=== PATIENT | male | born 1985 | race Asian ===

== ENCOUNTER 2017-03-21 08:46 | Emergency (ER) | payer OTHER ==
[~2017-03-21] VITALS: Ht 182.9 cm; Wt 78.0 kg
--- NOTE | 2017-03-21 10:31 | ED INFLUENZA/URI COMPLAINT ---
History of Present Illness General Chief Complaint: General Adult Stated Complaint: FLU SYMPTOMS Vital Signs & Intake/Output Vital Signs & Intake/Output Vital Signs Date Time Temp Pulse Resp B/P B/P Pulse O2 O2 Flow FiO2 Mean Ox Delivery Rate 03/21 847 97.2 55 15 143/75 97 Room Air Room Air Allergies Coded Allergies: No Known Allergies (03/21/17) Triage Note: PT TO ED FOR C/C OF YELLOW PRODUCTIVE COUGH, SORE THROAT. 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 No Progress Differential Diagnosis: influenza, otitis, pneumonia, pharyngitis, sinusitis, BRONCHITIS Plan of Care: Orders Procedure Date/time Status THROAT CULTURE W/QUICK STREP 03/21 852 Active RAPID VIRAL INFLUENZA A 03/21 849 Complete Microbiology 03/21 854 NASOPHARYN: Influenza Virus A & B Rapid Smear - COMP I discussed with the patient at length all of their results. I had an extensive conversation regarding need for close follow up with their primary care physician this week as well as return precautions. I answered all of their questions, they feel comfortable with the plan and follow-up care. I discussed with the patient/family the medications that they will receive. I gave them signs and symptoms that could indicate an adverse reaction. I have advised them to limit their activities until they can see how they respond to the medication. Initial ED EKG: none Departure Departure Condition: Stable Referrals: Patient Has No Primary Care Dr (PCP/Family) Departure Forms: Customer Survey General Discharge Information obvious focal neurologic abnormalities. Skin: Warm & dry;No appreciable rash on exposed skin Psych: Mood affect normal, normal memory normal judgment. Progress Differential Diagnosis: influenza, otitis, pneumonia, pharyngitis, sinusitis, BRONCHITIS Plan of Care: Orders Procedure Date/time Status THROAT CULTURE W/QUICK STREP 03/21 852 Active RAPID VIRAL INFLUENZA A 03/21 849 Complete Microbiology 03/21 854 NASOPHARYN: Influenza Virus A & B Rapid Smear - COMP I discussed with the patient at length all of their results. I had an extensive conversation regarding need for close follow up with their primary care physician this week as well as return precautions. I answered all of their questions, they feel comfortable with the plan and follow-up care. I discussed with the patient/family the medications that they will receive. I gave them signs and symptoms that could indicate an adverse reaction. I have advised them to limit their activities until they can see how they respond to the medication. Initial ED EKG: none Departure Departure Condition: Stable Referrals: Patient Has No Primary Care Dr (PCP/Family) Departure Forms: Customer Survey General Discharge Information
== END 2017-03-21 09:15 | disposition admitted as inpatient to this hospital (09) ==
LOC: ERH 08:46
DX: R05 Cough (principal); J02.9 Acute pharyngitis, unspecified
CPT/HCPCS: 87804; 87804-59; 99281